=== PATIENT | female | born 1985 | race Two or more races ===

== ENCOUNTER 2024-09-23 11:34 | Emergency (ER) | payer SELFPAY ==
[2024-09-23 11:35] VITALS: BMI 30.7
[2024-09-23 11:40] VITALS: BP 132/93; PULSE 71; RESP 18; TEMP 36.6; O2SAT 100
--- NOTE | 2024-09-23 11:43 | XR_ITS ---
Examination: Hand, right 3 views Technique: Hand AP, oblique, lateral 3 views Date and time of exam: September 23, 2024, 1218 hrs. Indications: Laceration to the hand today with hand pain Findings: No fracture. No foreign body. No cortical bone destruction Impression: No opaque foreign body
[2024-09-23] MEDS: IBUPROFEN TAB 400 MG TABLET 800 MG PO (11:58)
[2024-09-23] MEDS: DIPHTH,PERTUSS(ACELL),TET VAC 0.5 ML SYR- ADULT IMi (11:59)
[2024-09-23] MEDS: LIDOCAINE HCL 1% 20 ML VIAL INFL (11:59)
--- NOTE | 2024-09-23 13:02 | PD.EDHAND ---
Upper Extremity Injury RME/HPI General Chief Complaint: Hand/Wrist Problems Stated Complaint: INJURY TO RIGHT 5TH FINGER LAST NIGHT AT 2200 Time Seen by Provider: 09/23/24 11:41 Arrival date/time: 09/23/24 11:34 39-year-old female presents Emergency Department today send she dropped a mirror on her hand injuring her right hand 4th and 5th digits last evening Limitations: no limitations Related Data Previous Rx's ?Medication ?Instructions ?Recorded hydrocodone 5 mg-acetaminophen 325 1 tab PO BID PRN pain #20 tabs 12/30/20 mg tablet ibuprofen 800 mg tablet 800 mg PO TID PRN pain #30 tabs 12/30/20 bacitracin 500 unit/gram topical 1 applic topical TID 7 days #28.4 09/23/24 ointment grams cephalexin 500 mg capsule 500 mg PO BID 7 days #14 caps 09/23/24 ibuprofen 800 mg tablet 800 mg PO TID PRN pain #30 tabs 09/23/24 Allergies Allergy/AdvReac Type Severity Reaction Status Date / Time No Known Allergies Allergy Verified 09/23/24 11:36 Review of Systems Review of Systems Systems Reviewed: All systems reviewed, normal except as documented Constitutional Constitutional: Reports system reviewed and no additional complaints, except as documented, Denies fever(s) and Denies headache(s) Eyes Eyes: Reports system reviewed and no additional complaints, except as documented and Denies blurry vision ENT Ears, Nose, Mouth, and Throat: Reports system reviewed and no additional complaints, except as documented, Denies headache(s), Denies nasal congestion and Denies nasal discharge Cardiovascular Cardiovascular: Reports system reviewed and no additional complaints, except as documented, Denies chest pain and Denies dyspnea Respiratory Respiratory: Reports system reviewed and no additional complaints, except as documented, Denies chest congestion, Denies cough and Denies dyspnea Gastrointestinal Gastrointestinal: Reports system reviewed and no additional complaints, except as documented and Denies abdominal pain Musculoskeletal Musculoskeletal: Reports system reviewed and no additional complaints, except as documented and Reports other (Decreased ROM right hand 4th and 5th digits) Integumentary/Breasts Skin/Breast: Reports system reviewed and no additional complaints, except as documented, Denies rash and Reports wounds (Laceration right hand 4th and 5th digits) Neurologic Neurologic: Reports system reviewed and no additional complaints, except as documented, Reports as per HPI and Denies headache(s) Past Medical History Social History SMOKING STATUS: Never smoker ED Exam General Limitations: Present no limitations General appearance: Present alert and in no apparent distress Head Head exam: Present atraumatic Eye Eye exam: Present normal appearance, PERRL and EOMI ENT ENT exam: Present normal exam, normal oropharynx and mucous membranes moist Neck Neck exam: Present normal inspection, full ROM and trachea midline Chest Chest inspection: Present normal inspection and symmetric chest wall rise Respiratory Respiratory exam: Present normal lung sounds bilaterally Cardiovascular Cardiovascular exam: Present regular rate, normal rhythm and normal heart sounds Abdominal Exam Abdominal exam: Present soft and normal bowel sounds Extremities Exam Extremities exam: Present full ROM, tenderness, normal capillary refill and other (Laceration right hand 4th and 5th digit decreased ROM right hand fifth digit); Absent joint swelling Back Exam Back exam: Present normal inspection and full ROM Neurological Exam Neurological exam: Present alert, oriented X3 and CN II-XII intact Psychiatric Psychiatric exam: Present normal affect and normal mood Skin Skin exam: Present warm, dry and other (Laceration right hand for digit and fourth digit) Course Quality Measures none Orders Category Date Time Status Set Up Suture Tray STAT Care 09/23/24 11:43 Active Wound Care NOW Care 09/23/24 11:43 Active XR hand comp RT min 3V Stat Exams 09/23/24 11:43 Taken Ibuprofen Tab [Motrin Tab] Med 09/23/24 11:43 Discontinued 800 mg PO X1 ONE Lidocaine 1% 20 ml [Xylocaine 1% 20 ML] Med 09/23/24 11:43 Discontinued 20 ml INFL X1 ONE TET,DIP/PERT AC (Adult)-Tdap [Boostrix Adult (Tdap) Med 09/23/24 11:43 Discontinued Vacc] 0.5 ml IMI .ONCE ONE Vital Signs Vital signs: Vital Signs Temperature 97.9 F 09/23/24 11:40 Pulse Rate 71 09/23/24 11:40 Respiratory Rate 18 09/23/24 11:40 Blood Pressure 132/93 H 09/23/24 11:40 Pulse Oximetry (%) 100 09/23/24 11:40 Oxygen Delivery Method Room Air 09/23/24 11:40 O2 saturation 100% room air with normal PROCEDURES: Laceration Laceration 1: Site: hand Side (If applicable): right Size (cm): 2 Description: linear Depth: simple, single layer Local Anesthetic: lidocaine 1% Amount of anesthesia used (mL): 2 Pre-repair: wound explored Skin layer closed with: nylon Suture size (cm): 5-0 Number of sutures: 3 Technique: simple, interrupted Laceration 2: Site: hand Side (If applicable): right Size (cm): 2 Description: linear Depth: simple, single layer Local Anesthetic: lidocaine 1% Amount of anesthesia used (mL): 2 Skin layer closed with: nylon Suture size (cm): 5-0 Number of sutures: 3 Technique: simple, interrupted Splint Fabrication: Pre-Fabricated Type: Finger Protector Reason for Splint: Optimal Positioning and Pain Management Circulation Distal to Splint: Yes Movement Distal to Splint: Yes Senation Distal to Splint: Yes Tolerance: Tolerates Well Extremity Injury MDM Narrative MDM Narrative:: 39-year-old female presents Emergency Department today send she dropped a mirror on her hand injuring her right hand 4th and 5th digits last evening On exam patient is decreased range of motion right hand fifth digit I suspect patient has a tendon injury injury Lacerations repaired Tetanus updated Consultation: I spoke with Dr. Blancas hand surgeon who states he is able to see the patient in his office but needs a referral from PCP patient states understanding and states she will follow-up with her PCP as soon as possible within the next 24 hours. I explained to the patient that this time sensitive and is to be effective soon as possible Patient discharged home with ibuprofen and antibiotics Patient data External records reviewed:: [facility] previous records Clinical information provided by:: patient Social determinants that could affect healthcare access:: none Patient has the following chronic illnesses:: None How is presenting disease/condition affected by chronic disease/condition?: no chronic disease Evaluation data The following diagnostics were reviewed and interpreted by me:: radiology exam(s) Lab and/or radiology exams considered but not ordered:: Radiology obtain Interpretation Summary: Reviewed by me Medications / Prescriptions Medications or Prescriptions considered but not ordered:: Given Medication administrations:: Medication Administration History Discontinued Medications Diphtheria/Tetanus/Acell Pertussis (Diphth,Pertuss(Acell),Tet Vac 0.5 Ml Syr- Adult) 0.5 ml IMi .ONCE ONE Stop: 09/23/24 11:44 Last Admin: 09/23/24 11:59 Dose: 0.5 ml Documented By: Ibuprofen (Ibuprofen Tab 400 Mg Tablet) 800 mg PO X1 ONE Stop: 09/23/24 11:44 Last Admin: 09/23/24 11:58 Dose: 800 mg Documented By: Lidocaine HCl (Lidocaine Hcl 1% 20 Ml Vial) 20 ml INFL X1 ONE Stop: 09/23/24 11:44 Last Admin: 09/23/24 11:59 Dose: 20 ml Documented By: Given Consultations Consultation(s) initiated? (list below): Yes Consultation #1 (Physician, Specialty, Details): Dr. Blancas hand surgeon Diagnosis Upper Extremity Injury Differential Diagnosis: other (Laceration, abrasion,) Most likely diagnosis given after review of the tests above:: Laceration, tendon injury Admission Indicated Admission indicated?: not indicated Admission Request Was there a request for admission?: No Disposition Plan Disposition Plan: Discharge Discharge Attestation Discharge Attestation: The patient and all family members were given an opportunity to ask questions and understood the discharge instructions. Discharge instructions specifically effects, indications for sooner follow up or return to the emergency department, and the expected course of current diagnosis. Patient condition: Stable Discharge Plan Plan Patient Disposition: HOME (Self Care) Discharge Disposition comment: Stable Prescriptions/Referrals Prescriptions/Med Rec: New bacitracin 500 unit/gram ointment 1 applic topical TID 7 Days Qty: 28.4 0RF ibuprofen 800 mg tablet 800 mg PO TID PRN (Reason: pain) Qty: 30 0RF cephalexin 500 mg capsule 500 mg PO BID 7 Days Qty: 14 0RF No Action ibuprofen 800 mg tablet 800 mg PO TID PRN (Reason: pain) Qty: 30 0RF hydrocodone-acetaminophen 5-325 mg tablet 1 tab PO BID MDD 10 PRN (Reason: pain) Qty: 20 0RF Referrals: Corky Blancas MD [Referring Provider] - 09/25/24 Problem List Clinical Impression: Laceration of hand, right, Injury of flexor tendon of right hand Patient/Caregiver Discharge Instructions Education Materials: ED Laceration Hand with ... Additional Instructions: Please see your primary care doctor within next 24 to 48 hours inform them you need to have a referral made to Dr. Blancas hand surgeon who states he will see you in his office for evaluation but you must have a referral to him Print Language: Latvian Stand Alone Forms: Kenia Award Info., Patient Portal Info Letter PA/[employer] Supervising Physician PA/RIGOBERTO Supervising Physician: Dr. carr
== END 2024-09-23 13:16 | disposition home or self-care (01) ==
PROVIDERS: Emergency Provider Emergency Medicine
DX: S61.216A Laceration without foreign body of right little finger without damage to nail, initial encounter (principal); S61.214A Laceration without foreign body of right ring finger without damage to nail, initial encounter; S66.901A Unspecified injury of unspecified muscle, fascia and tendon at wrist and hand level, right hand, initial encounter; W20.8XXA Other cause of strike by thrown, projected or falling object, initial encounter; Z23 Encounter for immunization
CPT/HCPCS: 12004; 73130; 90471; 90715; 99284; J3490; A9270